=== PATIENT | male | born 1965 | race Caucasian/White ===

== ENCOUNTER 2020-02-26 01:09 | Emergency (ER) | payer BC ==
[~2020-02-26] VITALS: Ht 180.3 cm; Wt 87.2 kg
[2020-02-26 01:09] VITALS: BP 160/107
[2020-02-26] MEDS ORDERED: LIDOcaine 1% 30ml preserv. free vial ONE (13:00)
--- NOTE | 2020-02-29 17:20 | NUR ---
PT WAS CALLED AT THE REQUEST OF DR BRADY, TO GIVEN HIM DR HIDALGO' PHONE# FOR FOLLOW-UP. PT STATES THAT HE HAS AN BEEN TO [facility] AND WAS SEEN BY DR GR FOR FOLLOW-UP. DR ALEGRIA NOTIFIED
== END 2020-02-26 02:38 ==
LOC: ER 01:09
DX: S52.501A Unspecified fracture of the lower end of right radius, initial encounter for closed fracture (principal); M25.531 Pain in right wrist; F10.129 Alcohol abuse with intoxication, unspecified; V87.7XXA Person injured in collision between other specified motor vehicles (traffic), initial encounter; Y93.89 Activity, other specified; Y92.89 Other specified places as the place of occurrence of the external cause; Y99.8 Other external cause status; Y90.9 Presence of alcohol in blood, level not specified
CPT/HCPCS: 25605; 70450; 72125; 73110; 99285; J2001